=== PATIENT | male | born 1955 | race Two or more races ===

== ENCOUNTER 2023-05-25 20:16 | Emergency (ER) | payer OTHER, SELFPAY ==
[2023-05-25 20:20] VITALS: BP 183/101; PULSE 102; RESP 20; TEMP 36.6; O2SAT 95; BMI 31.5
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
== END 2023-05-26 02:30 | disposition left against medical advice (07) ==
PROVIDERS: Emergency Provider Emergency Medicine; PCP Orthopaedic Surgery
DX: R10.9 Unspecified abdominal pain (principal); T21.04XA Burn of unspecified degree of lower back, initial encounter; X19.XXXA Contact with other heat and hot substances, initial encounter; Y93.9 Activity, unspecified; Y92.9 Unspecified place or not applicable; Y99.9 Unspecified external cause status; R00.0 Tachycardia, unspecified
CPT/HCPCS: 74176; 99281; 99284

== ENCOUNTER 2023-08-03 10:08 | Outpatient (REF) | payer OTHER, SELFPAY ==
[2023-08-03 11:47] LABS: Prostate Specific Antigen 0.44 ng/mL (<0.05-4.0); TSH reflex Free T4 1.29 uIU/mL (0.32-4.0)
[2023-08-09 16:44] LABS: Testosterone, Free 13.1 pg/mL (35.0-155.0); Testosterone, Total 119 ng/dL (250-1100)
[2023-08-10 18:29] LABS: Follicle Stimulating Hormone 17.1 mIU/mL (1.6-8.0); Lutenizing Hormone 5.2 mIU/mL (1.6-15.2)
== END 2023-08-03 10:09 | disposition home or self-care (01) ==
LOC: HO.LAB 10:08
PROVIDERS: PCP Internal Medicine; Visit Provider Internal Medicine
DX: Z12.5 Encounter for screening for malignant neoplasm of prostate (principal); N52.8 Other male erectile dysfunction
CPT/HCPCS: 36415; 83001; 83002; 84146; 84153; 84402; 84403; 84443

== ENCOUNTER 2023-08-11 12:04 | Outpatient (REF) | payer OTHER, SELFPAY | END 2023-08-11 12:05 | disposition home or self-care (01) | LOC: HO.LAB 12:04 | PROVIDERS: PCP Internal Medicine; Visit Provider Internal Medicine | DX: Z13.89 Encounter for screening for other disorder (principal) ==

== ENCOUNTER 2023-08-15 10:30 | Outpatient (REF) | payer OTHER, SELFPAY | END 2023-08-15 10:31 | disposition home or self-care (01) | LOC: HO.LAB 10:30 | PROVIDERS: PCP Internal Medicine; Visit Provider Internal Medicine | DX: Z13.89 Encounter for screening for other disorder (principal) ==

== ENCOUNTER 2023-08-17 09:52 | Outpatient (REF) | payer OTHER, SELFPAY ==
[2023-08-26 14:04] LABS: Testosterone, Free 6.9 pg/mL (35.0-155.0); Testosterone, Total 61 ng/dL (250-1100)
== END 2023-08-17 09:53 | disposition home or self-care (01) ==
LOC: HO.LAB 09:52
PROVIDERS: PCP Internal Medicine; Visit Provider Internal Medicine
DX: R79.89 Other specified abnormal findings of blood chemistry (principal)
CPT/HCPCS: 36415; 84402; 84403

== ENCOUNTER 2023-10-30 15:56 | Outpatient (REF) | payer OTHER, SELFPAY ==
[2023-10-30 18:37] LABS: Influenza A PCR NEGATIVE (Negative); Influenza B PCR NEGATIVE (Negative); Resp Syncy Virus RNA Qual PCR NEGATIVE (Negative); SARS COV2 PCR INHOUSE NEGATIVE (Negative)
== END 2023-10-30 15:57 | disposition home or self-care (01) ==
LOC: HO.CHCLNP 15:56
PROVIDERS: Visit Provider Registered Nurse
DX: R05.1 Acute cough (principal); Z11.52 Encounter for screening for COVID-19
CPT/HCPCS: 0241U; 87070

== ENCOUNTER 2023-12-12 17:25 | Outpatient (REF) | payer OTHER, SELFPAY ==
[2023-12-12 18:20] LABS: Influenza A PCR NEGATIVE (Negative); Influenza B PCR NEGATIVE (Negative); Resp Syncy Virus RNA Qual PCR NEGATIVE (Negative); SARS COV2 PCR INHOUSE NEGATIVE (Negative)
== END 2023-12-12 17:26 | disposition home or self-care (01) ==
LOC: HO.CHCLNP 17:25
PROVIDERS: Visit Provider Family Medicine
DX: Z11.52 Encounter for screening for COVID-19 (principal); Z20.822 Contact with and (suspected) exposure to COVID-19; R53.83 Other fatigue
CPT/HCPCS: 0241U

== ENCOUNTER 2023-12-13 11:23 | Outpatient (REF) | payer OTHER, SELFPAY ==
[2023-12-13 11:38] LABS: MANUAL DIFF FLAG NO
[2023-12-13 11:58] LABS: Basophils Absolute Auto 0.1 X10*3/uL (0.0-0.2); Basophils Percent Auto 0.7 % (0-2); Eosinophils Absolute Auto 0.2 X10*3/uL (0.0-0.4); Eosinophils Percent Auto 2.1 % (0-4); Hematocrit 47.1 % (42.0-52.0); Imm Gran Abs Auto 0.02 X10*3/uL (0.00-0.03); Imm Gran Pct Auto 0.2 % (0.0-0.4); Lymphocytes Absolute Auto 3.1 X10*3/uL (1.2-4.9); Lymphocytes Percent Auto 29.6 % (20-40); Mean Corpuscular Volume 91.3 fL (80.0-98.0); Mean Platelet Volume 10.4 fL (9.4-12.4); Monocytes Absolute Auto 1.1 X10*3/uL (0.1-1.2); Monocytes Percent Auto 10.3 % (2-11); Neutrophils Absolute Auto 5.9 x10*3/uL (2.0-8.3); Neutrophils Percent Auto 57.1 % (45-73); Platelet Count 262 X10*3/uL (160-400); Red Blood Count 5.16 X10*6/uL (4.60-5.80); Red Cell Distribution Width 12.7 % (11.0-16.0); White Blood Count 10.4 X10*3/uL (4.8-10.8)
[2023-12-13 12:09] LABS: Prothrombin Time 12.3 SEC (11.1-13.3)
[2023-12-13 12:36] LABS: Alanine Aminotransferase 47 U/L (0-40); Albumin Level 4.6 g/dL (3.5-5.0); Alkaline Phosphatase 83 U/L (39-117); Anion Gap 13 (12-20); Aspartate Amino Transferase 31 U/L (5-37); Bilirubin Direct 0.3 mg/dL (0.0-0.5); Bilirubin Total 0.8 mg/dL (0.0-1.0); Blood Urea Nitrogen 19 mg/dL (9-16); Calcium 10.5 mg/dL (8.4-10.2); Carbon Dioxide 24 mmol/L (22-29); Chloride 103 mmol/L (96-108); Estimated Glomerular Filt Rate > 60; Glucose Random 95 mg/dL (60-115); Potassium 4.1 mmol/L (3.3-5.1); Sodium 136 mmol/L (135-145); Total Protein 9.7 g/dL (6.5-8.0)
== END 2023-12-13 11:24 | disposition home or self-care (01) ==
LOC: HO.LAB 11:23
PROVIDERS: Absent Provider Internal Medicine; PCP Internal Medicine; Visit Provider Family Medicine
DX: T14.8XXA Other injury of unspecified body region, initial encounter (principal); X58.XXXA Exposure to other specified factors, initial encounter; Y93.9 Activity, unspecified; Y92.9 Unspecified place or not applicable; Y99.9 Unspecified external cause status
CPT/HCPCS: 36415; 80053; 82248; 85025; 85610

== ENCOUNTER 2024-07-18 12:37 | Outpatient (REF) | payer OTHER, SELFPAY ==
[2024-07-18 14:15] LABS: MANUAL DIFF FLAG NO
[2024-07-18 14:26] LABS: Basophils Percent Auto 0.5 % (0-2); Eosinophils Absolute Auto 0.3 X10*3/uL (0.0-0.4); Eosinophils Percent Auto 3.5 % (0-4); Hematocrit 44.4 % (42.0-52.0); Hemoglobin 15.1 g/dl (14.0-18.0); Imm Gran Abs Auto 0.02 X10*3/uL (0.00-0.03); Imm Gran Pct Auto 0.2 % (0.0-0.4); Lymphocytes Absolute Auto 2.7 X10*3/uL (1.2-4.9); Lymphocytes Percent Auto 33.8 % (20-40); Mean Corpuscular Hemoglobin 30.6 pg (27.0-33.0); Mean Corpuscular Volume 89.9 fL (80.0-98.0); Mean Platelet Volume 10.9 fL (9.4-12.4); Monocytes Absolute Auto 0.8 X10*3/uL (0.1-1.2); Monocytes Percent Auto 10.5 % (2-11); Neutrophils Absolute Auto 4.1 x10*3/uL (2.0-8.3); Neutrophils Percent Auto 51.5 % (45-73); Platelet Count 215 X10*3/uL (160-400); Red Blood Count 4.94 X10*6/uL (4.60-5.80); Red Cell Distribution Width 13.1 % (11.0-16.0)
[2024-07-18 14:42] LABS: Alanine Aminotransferase 43 U/L (0-40); Albumin Level 4.2 g/dL (3.5-5.0); Alkaline Phosphatase 80 U/L (39-117); Anion Gap 11 (12-20); Aspartate Amino Transferase 26 U/L (5-37); Bilirubin Total 0.6 mg/dL (0.0-1.0); Blood Urea Nitrogen 21 mg/dL (9-16); Calcium 9.7 mg/dL (8.4-10.2); Carbon Dioxide 27 mmol/L (22-29); Chloride 105 mmol/L (96-108); Estimated Glomerular Filt Rate > 60; Glucose Random 125 mg/dL (60-115); Potassium 3.5 mmol/L (3.3-5.1); Sodium 139 mmol/L (135-145); Total Protein 8.4 g/dL (6.5-8.0)
[2024-07-19 09:25] LABS: HBsAGNum1 0.28 S/CO (0.00-0.99); Hepatitis B Surface Antigen Negative (Negative); ~HepC Num1 14.82 S/CO (0.00-0.79); ~Hepatitis C Antibody Reactive (Nonreactive)
[2024-07-23 18:43] LABS: RPR Rapid Plasma Reagin REACTIVE (NON-REACTIVE)
== END 2024-07-18 12:38 | disposition home or self-care (01) ==
LOC: HO.CHCLDS 12:37
PROVIDERS: PCP Internal Medicine; Visit Provider Physician Assistant Medical
DX: F11.20 Opioid dependence, uncomplicated (principal)
CPT/HCPCS: 36415; 80053; 85025; 86592; 86593; 86803; 87340

== ENCOUNTER 2024-08-23 11:39 | Outpatient (REF) | payer OTHER, SELFPAY ==
[2024-08-23 11:59] LABS: MANUAL DIFF FLAG NO
[2024-08-23 12:29] LABS: Basophils Absolute Auto 0.1 X10*3/uL (0.0-0.2); Basophils Percent Auto 0.7 % (0-2); Eosinophils Absolute Auto 0.3 X10*3/uL (0.0-0.4); Eosinophils Percent Auto 4.8 % (0-4); Hematocrit 44.6 % (42.0-52.0); Hemoglobin 15.4 g/dl (14.0-18.0); Imm Gran Abs Auto 0.01 X10*3/uL (0.00-0.03); Imm Gran Pct Auto 0.1 % (0.0-0.4); Lymphocytes Absolute Auto 2.4 X10*3/uL (1.2-4.9); Lymphocytes Percent Auto 34.7 % (20-40); Mean Corpuscular HGB Conc 34.5 g/dl (31.0-36.0); Mean Corpuscular Hemoglobin 30.7 pg (27.0-33.0); Mean Platelet Volume 10.3 fL (9.4-12.4); Monocytes Absolute Auto 0.7 X10*3/uL (0.1-1.2); Monocytes Percent Auto 9.9 % (2-11); Neutrophils Absolute Auto 3.4 x10*3/uL (2.0-8.3); Neutrophils Percent Auto 49.8 % (45-73); Platelet Count 207 X10*3/uL (160-400); Red Blood Count 5.01 X10*6/uL (4.60-5.80); Red Cell Distribution Width 12.8 % (11.0-16.0); White Blood Count 6.9 X10*3/uL (4.8-10.8)
[2024-08-23 13:48] LABS: Alanine Aminotransferase 59 U/L (0-40); Albumin Level 4.1 g/dL (3.5-5.0); Alkaline Phosphatase 84 U/L (39-117); Anion Gap 14 (12-20); Aspartate Amino Transferase 33 U/L (5-37); Bilirubin Total 0.6 mg/dL (0.0-1.0); Blood Urea Nitrogen 14 mg/dL (9-16); Calcium 9.7 mg/dL (8.4-10.2); Carbon Dioxide 23 mmol/L (22-29); Chloride 106 mmol/L (96-108); Estimated Glomerular Filt Rate > 60; Glucose Random 135 mg/dL (60-115); Potassium 3.8 mmol/L (3.3-5.1); Sodium 139 mmol/L (135-145); Total Protein 8.5 g/dL (6.5-8.0)
[2024-08-26 04:58] LABS: HBsAGNum1 0.51 S/CO (0.00-0.99); Hepatitis B Surface Antigen Negative (Negative); ~HepC Num1 12.89 S/CO (0.00-0.79); ~Hepatitis C Antibody Reactive (Nonreactive)
== END 2024-08-23 11:40 | disposition home or self-care (01) ==
LOC: HO.LAB 11:39
PROVIDERS: PCP Internal Medicine; Visit Provider Physician Assistant Medical
DX: F11.20 Opioid dependence, uncomplicated (principal)
CPT/HCPCS: 36415; 80053; 85025; 86592; 86803; 87340

== ENCOUNTER 2024-10-22 13:52 | Outpatient (REF) | payer OTHER, SELFPAY ==
--- OUTSIDE RECORDS SUMMARY | 2024-10-29 14:48 | XMS_ITS | Data Portability ---
Author Organization [facility] Address [address] [place] [id number] Care Team Providers Care Wall Mirror Department Supervisor Name Role Phone [facility] Referring Provider [facility] Referring Provider Assessment Encounter Date Assessment Date Assessment LastModified by Organization Details LastModified Time 07/14/2022 07/14/2022 Called to johnnie young 66 y/o m w h/o TBI, TIA, multiple GABRIELLA, HCV, mood d/o who c/o left nipple pain x 3 days. Patient reports feeling a lump and notes significant tenderness w/ palpation. Denies fever, N/V/D, edema or discharge. Per medic, VS elevated blood pressure. Chest: L breast no edema, no discharge elicited, slightly erythematous and tenderness elicited w palpation. R breast wnl. ECG w artifact but overall NSR w no TW, no ST change appreciated. A/P: Left nipple findings need to be explored diff dx includes gynecomastia vs malignancy. Patient advised to f/u w PCP for further evaluation. Care team, please f/u w member in 2-3 days. [email or web address] Not available 07/14/2022 15:40:05 Plan of Treatment Reminders Order Date Submit Date Provider Last Modified By Organization Details Last Modified Time Details Appointments None record ed. Lab None record ed. Referral None record ed. Procedures None record ed. Surgeries None record ed. Imaging None record ed. Medication Orders None record ed. Patient TargetsNo targets recorded. Patient InstructionsNo instructions recorded. Reason for Referral None Reported. Medical Equipment None Reported. Allergies Allergen ID Allergen Name Allergen Category Reaction Reaction Severity Criticality Documentation Date Start Date Code Code System Note Provider Name and Address Organization Details Recorded Time 7106 Medicinal product containin g penicilli n and acting as antibacte rial agent (product) medicatio n Not available Not available Not available 09/17/2024 48956 05 SNOMED Not Available [facility] 4 03:33:15 Medications Name Sig Start Date Stop Date Status Note LastModified by Organization Details LastModified Time medbox status USE DIRECTED active Not Available Not Available No t Available cyclobenzaprin e 10 mg tablet TAKE ONE TABLET THREE TIMES DAILY FOR 10 DAYS active Not Available Not Available No t Available atorvastatin 80 mg tablet TAKE ONE TABLET BY MOUTH EVERY MORNING active Not Available Not Available No t Available azithromycin 250 mg tablet active Not Available Not Availabl e Not Available phenytoin sodium extended 100 mg capsule TAKE THREE CAPSULES EVERY DAY AT BEDTIME active Not Available Not Available No t Available clopidogrel 75 mg tablet TAKE ONE TABLET BY MOUTH EVERY MORNING active Not Available Not Available No t Available aspirin 81 mg tablet,delayed release TAKE ONE TABLET BY MOUTH EVERY MORNING active Not Available Not Available No t Available acetaminophen 500 mg tablet TAKE TWO TABLETS EVERY 6 HOURS NEEDED FOR PAIN active Not Available Not Available No t Available lisinopril 10 mg tablet TAKE ONE TABLET BY MOUTH EVERY MORNING active Not Available Not Available No t Available lisinopril 5 mg tablet TAKE ONE TABLET BY MOUTH EVERY MORNING active Not Available Not Available No t Available hydrochlorothi azide 25 mg tablet TAKE ONE TABLET BY MOUTH EVERY MORNING active Not Available Not Available No t Available metoprolol succinate ER 25 mg tablet,extende d release 24 hr TAKE ONE TABLET EVERY MORNING active Not Available Not Available No t Available naproxen 500 mg tablet TAKE ONE TABLET TWICE DAILY NEEDED active Not Available Not Available No t Available Ventolin HFA 90 mcg/actuation aerosol inhaler INHALE TWO FOR PAIN OR FEVER EVERY 4 TO 6 HOURS NEEDED active Not Available Not Available No t Available diclofenac 1 % topical gel APPLY TWO GRAMS TO THE AFFECTED AREA(s) THREE TIMES DAILY active Not Available Not Available No t Available Vitals Date Recorded Body weight Heart rate Oxygen saturation Oxygen saturation in Arterial blood by Pulse oximetry Respiratory rate Body temperature Body height Body temperature Body height Heart rate Respiratory rate Body weight Oxygen saturation Oxygen saturation in Arterial blood by Pulse oximetry Respiratory rate Body weight Body temperature Heart rate Oxygen saturation Oxygen saturation in Arterial blood by Pulse oximetry Body height Systolic blood pressure Diastolic blood pressure Systolic blood pressure Diastolic blood pressure Systolic blood pressure Diastolic blood pressure Provider Name and Address Organization Details Last Updated DateTime 2 35293.4 8 g 76 /min 100 % 100 % 18 /min 98.6 [degF] 180.34 cm 98.6 [degF] 180.34 cm 76 /min 18 /min 72963.4 8 g 100 % 100 % 18 /min 63382.4 8 g 98.6 [degF] 76 /min 100 % 100 % 180.34 cm 161 mm[Hg] 97 mm[Hg] 161 mm[Hg] 97 mm[Hg] 161 mm[Hg] 97 mm[Hg] Not Available [facility] - production 15:35:46 Social History None recorded. Functional Status None recorded. Mental Status None recorded. Family History Nothing Reported. Medical History No medical history recorded. Past Encounters Encounter ID Performer Location Encounter Start Date Encounter Closed Date Diagnosis/Indication Diagnosis SNOMED-CT Code Diagnosis ICD10 Code [id number] Malorie Carrion MD [facility] [address] [place] [id number] 07/14/2022 13:34:07 07/18/2022 08:29:44 Health Concerns Section Related Observation LastModified by Organization Detai ls LastModified Time None Recorded Concern Status LastModified by Organization Details LastModified Time None Recorded Advance Directives Directive None Recorded Payers Encounter Date Sequence Insurance Name Policy Number Policy Cullen Covered Member ID Cullen Member ID Guarantor Name 07/14/2022 1 [facility] [place] - DOS PRIOR TO 2023 - DUAL ELIGIBLE (MEDICARE REPLACEMENT/ADV ANTAGE - HMO) Rachid Lehman [id number] Rachid Lehman Notes Date Note Type Note Provider Name and Address Organization Details Recorded Time 07/14/2022 text/html HPI: Patient reports having pain over left nipple x 3 days. Per pt pain non radiating. No swelling, redness to area. Per pt pain is worse if applies pressure to area. Pt also states feels a lump in that area. No SOB, , BYRD, dizziness or rash over area. 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 Patient unable to come into walk in center for evaluation. Pt has hx of NSTEMI back in April 2021. .................. .................. .................. .................. .................. .................. .................. ............... CRC Nursing Assessment: Comments: CRC RN DID NOT NEED FURTHER INFO TO PROCESS VISIT .................. .................. .................. .................. .................. .................. .................. ............... Cycle Specialist Note: Sent to a call for a pt complaining of pain over his left nipple. SC8 arrives on scene, pt is alert and oriented. Airway is patent. Pt complains of pain in left breast/nipple, worsening with palpation x 2 weeks. Pt complains of itching sensation starting yesterday. Area is euthermic. No edema, erythema, deformity noted. Difficult to assess tissue for lump due to tenderness with palpation. Pt denies headache, dizziness, cp, sob, n/v/d, abd pain, fever or loc. BP:161/97, P:76, RR:18, SpO2:100% RA, T:98.6; Lung sounds: clear bilaterally; Abdomen: soft, non-tender; Skin: pink, warm, dry; 12 lead ECG: Sinus rhythm; uploaded to [facility]; [facility] advises pt follow up with PCP for evaluation/plan of care. Red flags discussed. Pt has no further questions. .................. .................. .................. .................. .................. .................. .................. ............... Disposition: Fulfilled Malorie Carrion MD [address] [facility],[address], [place], [phone], ANA MARTINEZ 07/18/2022 08:29:42
== END 2024-10-22 13:53 | disposition home or self-care (01) ==
LOC: HO.MRI 13:52
PROVIDERS: PCP Internal Medicine; Visit Provider Family Medicine
DX: M54.50 Low back pain, unspecified (principal); G89.29 Other chronic pain
CPT/HCPCS: 72148